=== PATIENT | female | born 1970 | race Caucasian/White ===

== ENCOUNTER → 2019-10-11 | Outpatient (CLI) | payer BC, OTHER ==
--- NOTE | 2019-10-11 12:54 | WOMENS IMAGING REPORT ---
EXAM DESCRIPTION: 3D SCREENING MAMMO BILAT IMAGES COMPLETED DATE/TIME: 10/11/2019 10:45 am REASON FOR STUDY: Z12.31 ENCNTR SCREEN MAMMOGRAM FOR MALIGNANT NEOPLASM OF BREAST Z12.31 ENCNTR SCR EEN MAMMOGRAM FOR MALIGNANT NEOPLASM OF CEASAR COMPARISON: 02/07/2014 and 02/23/2009. EXAM PARAMETERS: Views: Standard craniocaudal and mediolateral oblique views of each breast recorded using digital acquisition and breast tomosynthesis. Read with the assistance of CAD. .[facility] - R2 Physician Anesthesiologist Version 9.2 LIMITATIONS: None. FINDINGS: No suspicious masses, suspicious calcifications or architectural distortion. No areas of c oncern. IMPRESSION: NEGATIVE MAMMOGRAM. BIRADS 1. BREAST DENSITY: a. The breasts are almost entirely fatty. BIRAD: ASSESSMENT: 1 NEGATIVE RECOMMENDATION: ROUTINE SCREENING COMMENT: The patient has been notified of the results by letter per MQSA requirements. Additional no tification policies are in place for contacting patient with suspicious or incomplete findings. Quality ID #[id number]: The [employer] recommends an annual screening mammogram for women aged 40 years or over. This facility utilizes a reminder system to ensure that all patients receive reminder letters, and/or direct phone calls for appointments. This includes reminders for routine scr eening mammograms, diagnostic mammograms, or other Breast Imaging Interventions when appropriate. Th is patient will be placed in the appropriate reminder system. TECHNICAL DOCUMENTATION: FINDING NUMBER: (1) ASSESSMENT: (1) JOB ID: [id number] 2010 [employer]- All Rights Reserved Reading location - IP/workstation name: [email or web address]
== END ==
LOC: WI 10:10
PROVIDERS: ATTEND Physician Assistant
DX: Z12.31 Encounter for screening mammogram for malignant neoplasm of breast (principal)
CPT/HCPCS: 77063; 77067

== ENCOUNTER 2019-11-23 19:17 | Inpatient (IN) | payer BC ==
--- NOTE | 2019-11-23 19:50 | ER Document Report ---
ED Medical Screen (RME) - General Chief Complaint: Abnormal Lab Results Stated Complaint: ABNORMAL LABS Primary Care Provider: EDWIGE OLIVEIRA PA-C [Primary Care Provider] - Follow up as needed Notes: Patient is a 49-year-old white female who is status post appendectomy [facility] who reports today with fever. States that she saw her primary doctor after developing fevers over the past 24 hours. States that she still having discomfort in the right lower quadrant. Her doctor sent her for blood work and CAT scan. Her doctor called with results concerned for possible further infection status post appendectomy and had the patient come to the emergency department for further care management. Patient denies any nausea or vomiting or diarrhea. States that she has eaten a sandwich earlier today but nothing since. Reports decreased appetite but does state that she is currently hungry. Denies any chest pain or cough. Denies any urinary complaints. I have treated and performed a rapid initial assessment of this patient. A comprehensive ED assessment and evaluation of the patient, analysis of test results and completion of medical decision making process will be conducted by additional ED providers. PHYSICAL EXAMINATION: GENERAL: Well-appearing, well-nourished and in no acute distress. A&Ox4. Answers questions appropriately. TRAVEL OUTSIDE OF THE [place] IN LAST 30 DAYS: No - Related Data Allergies/Adverse Reactions: No Known Allergies Allergy (Unverified 11/23/19 19:42) Past Medical History Past Surgical History: Reports: Hx Section, Hx Cholecystectomy - Immunizations Hx Diphtheria, Pertussis, Tetanus Vaccination: Yes Physical Exam - Vital signs Vitals: Temp Pulse Resp BP Pulse Ox 99.1 F 111 H 20 140/65 H 99 11/23/19 19:37 11/23/19 19:37 11/23/19 19:37 11/23/19 19:37 11/23/19 19:37 Course - Vital Signs Vital signs: Temp Pulse Resp BP Pulse Ox 99.1 F 111 H 20 140/65 H 99 11/23/19 19:37 11/23/19 19:37 11/23/19 19:37 11/23/19 19:37 11/23/19 19:37 Doctor's Discharge - Discharge Referrals: EDWIGE OLIVEIRA PA-C [Primary Care Provider] - Follow up as needed
--- NOTE | 2019-11-23 21:44 | RADIOLOGY REPORT (SQ) ---
CLINICAL INDICATION: fevers/po appendectomy. TECHNIQUE: A single portable AP view was obtained of the chest at 2103 hours. COMPARISON: None. FINDINGS: The cardiomediastinal silhouette is normal. The lungs definite mild chronic interstitial change. No acute process. No evidence of effusion or pneumothorax. Osteoarthritis. Postsurgical change right upper quadrant. IMPRESSION: No evidence of active intrathoracic disease.
[2019-11-23 21:57] LABS: ABSOLUTE LYMPHOCYTES (AUTO) 0.9 10^3/uL (0.5-4.7); ABSOLUTE MONOCYTES (AUTO) 1.1 10^3/uL (0.1-1.4); BASOPHILS % (AUTO) 0.3 % (0-2); EOSINOPHILS % (AUTO) 0.1 % (0-6); HEMATOCRIT 38.8 % (36.0-47.0); HEMOGLOBIN 13.1 g/dL (12.0-15.5); LYMPHOCYTES % (AUTO) 5.1 % (13-45); MEAN CORPUSCULAR HEMOGLOBIN 29.6 pg (27.0-33.4); MEAN CORPUSCULAR HGB CONC 33.9 g/dL (32.0-36.0); MEAN CORPUSCULAR VOLUME 88 fl (80-97); MONOCYTES % (AUTO) 6.3 % (3-13); PLATELET COUNT 691 10^3/uL (150-450); RED BLOOD COUNT 4.43 10^6/uL (3.72-5.28); SEGMENTED NEUTROPHILS % (AUTO) 88.2 % (42-78); TOTAL CELLS COUNTED % (AUTO) 100 %
[2019-11-23 22:16] LABS: ALBUMIN 4.2 g/dL (3.5-5.0); ALKALINE PHOSPHATASE 193 U/L (38-126); ANION GAP 15 (5-19); ASPARTATE AMINO TRANSFERASE 138 U/L (14-36); BILIRUBIN,TOTAL 1.6 mg/dL (0.2-1.3); BLOOD UREA NITROGEN 12 mg/dL (7-20); CALCIUM 9.8 mg/dL (8.4-10.2); CARBON DIOXIDE 29 mmol/L (22-30); CHLORIDE 93 mmol/L (98-107); GLUCOSE 143 mg/dL (75-110); POTASSIUM 5.2 mmol/L (3.6-5.0); TOTAL PROTEIN 7.8 g/dL (6.3-8.2)
[2019-11-24] MEDS ORDERED: ACETAMINOPHEN 325 MG TABLET PO ONE (01:06)
[2019-11-24 01:18] LABS: APPEARANCE,URINE SLIGHTLY-CLOUDY; BILIRUBIN,URINE NEGATIVE (NEGATIVE); COLOR,URINE AMBER; GLUCOSE, URINE NEGATIVE (NEGATIVE); KETONES,URINE TRACE mg/dL (NEGATIVE); PROTEIN,URINE >=500 mg/dL (NEGATIVE); URINE SPECIFIC GRAVITY 1.041
[2019-11-24] MEDS ORDERED: PIPERACILLIN/TAZOBACTAM 3.375 GM VIAL IV ONE (01:19)
[2019-11-24] MEDS ORDERED: RINGERS SOLUTION,LACTATED 1,000 ML IV ONE (01:19)
[2019-11-24] MEDS ORDERED: VANCOMYCIN HCL INJ 1000 MG VIAL IV ONE (01:19)
[2019-11-24] MEDS ORDERED: ONDANSETRON HCL INJ/PF 4 MG/2 ML SDV IV ONE (01:19)
[2019-11-24] MEDS ORDERED: MORPHINE SULFATE 10 MG/ML INJ IV ONE (01:20)
--- NOTE | 2019-11-24 01:23 | ER Document Report ---
ED GI/ - General Chief Complaint: Abnormal Lab Results Stated Complaint: ABNORMAL LABS Time Seen by Provider: 11/24/19 01:04 Mode of Arrival: Ambulatory Information source: Patient Notes: 49-year-old female 10 days status post appendectomy in [facility] presents to the emergency room with fevers of 103 that started 2 days ago. She has been taking Tylenol without relief. Also complaining of persistent right lower quadrant pain. Complains of nausea but no vomiting. No urinary symptoms. Negative COVID testing prior to her appendectomy. States she followed up with her primary care physician today for the fever and the persistent pain had labs and CT done and was referred to the emergency room for further evaluation. TRAVEL OUTSIDE OF THE [place] IN LAST 30 DAYS: No - Related Data Allergies/Adverse Reactions: No Known Allergies Allergy (Unverified 11/23/19 19:42) Past Medical History - General Information source: Patient - Social History Smoking Status: Never Smoker Frequency of alcohol use: Occasional Drug Abuse: None Family History: Reviewed & Not Pertinent - Past Medical History Cardiac Medical History: Reports: Hx Hypertension Past Surgical History: Reports: Hx Section, Hx Cholecystectomy - Immunizations Hx Diphtheria, Pertussis, Tetanus Vaccination: Yes Review of Systems - Review of Systems Constitutional: Fever, Malaise EENT: No symptoms reported Cardiovascular: No symptoms reported Respiratory: No symptoms reported Gastrointestinal: Abdominal pain, Nausea. denies: Diarrhea, Vomiting Genitourinary: No symptoms reported Musculoskeletal: No symptoms reported Skin: No symptoms reported Neurological/Psychological: No symptoms reported -: Yes All other systems reviewed and negative Physical Exam - Vital signs Vitals: Temp Pulse Resp BP Pulse Ox 99.1 F 111 H 20 140/65 H 99 11/23/19 19:37 11/23/19 19:37 11/23/19 19:37 11/23/19 19:37 11/23/19 19:37 - General General appearance: Appears well, Alert In distress: Moderate - Respiratory Respiratory status: No respiratory distress Chest status: Nontender Breath sounds: Normal Chest palpation: Normal - Cardiovascular Rhythm: Tachycardia Heart sounds: Normal auscultation Murmur: No - Abdominal Inspection: Normal Distension: No distension Bowel sounds: Normal Tenderness: Tender - There is tenderness on palpation to the right lower quadrant. No guarding, no rebound. Organomegaly: No organomegaly Notes: Well-healing surgical scars with no erythema, not warm or tender to palpation. No active discharge or draining noted. - Back Back: Normal, Nontender. No: CVA tenderness - Neurological Neuro grossly intact: Yes Cognition: Normal Orientation: AAOx4 [place] Coma Scale Eye Opening: Spontaneous Nishant Coma Scale Verbal: Oriented Nishant Coma Scale Motor: Obeys Commands [place] Coma Scale Total: 15 Speech: Normal Motor strength normal: LUE, RUE, LLE, RLE Sensory: Normal - Skin Skin Temperature: Warm Skin Moisture: Dry Skin Color: Normal Course - Re-evaluation Re-evalutation: 11/24/19 01:30 Patient is febrile, tachycardic, elevated temp. Reviewed lab and CAT scan results with patient. No obvious abscess or fluid collection noted on CT. Case was staffed with ED physician Dr. Mcneil, patient with abnormal LFTs along with elevated white count, negative urine, negative lactic, will start IV fluids, IV Zosyn, IV Vanco, pain medications, nausea medications, anti- paramedics abdominal ultrasound and reevaluate. - Vital Signs Vital signs: Temp Pulse Resp BP Pulse Ox 99.8 F 113 H 18 133/76 H 96 11/24/19 02:34 11/24/19 00:14 11/24/19 00:14 11/24/19 00:14 11/24/19 00:14 - Laboratory Result Diagrams: 11/23/19 21:32 11/23/19 21:32 Laboratory results interpreted by me: 11/23/19 11/23/19 11/24/19 21:32 21:32 00:50 WBC 17.0 H Plt Count 691 H Lymph % (Auto) 5.1 L Absolute Neuts (auto) 15.0 H Seg Neutrophils % 88.2 H Potassium 5.2 H Chloride 93 L Glucose 143 H Total Bilirubin 1.6 H Direct Bilirubin 1.0 H AST 138 H ALT 161 H Alkaline Phosphatase 193 H Urine Protein >=500 H Urine Ketones TRACE H Urine Blood SMALL H Urine Urobilinogen 2.0 H - Diagnostic Test Radiology reviewed: Reports reviewed - Consults Dr. Santoyo Time consulted: 02:48 Reason for consultation: 11/24/19 02:48 Lab, x-ray, vital signs, treatments were discussed at length with hospitalist Dr. Santoyo, agrees evaluation, agrees with plan, accepts admission. Consulted provider: will come to ER Discharge - Discharge Clinical Impression: Nausea Sepsis Qualifiers: Sepsis type: sepsis due to unspecified organism Sepsis acute organ dysfunction status: without acute organ dysfunction Qualified Code(s): A41.9 - Sepsis, unspecified organism Fever Qualifiers: Fever type: unspecified Qualified Code(s): R50.9 - Fever, unspecified Abdominal pain Qualifiers: Abdominal location: right lower quadrant Qualified Code(s): R10.31 - Right lower quadrant pain Condition: Stable Disposition: ADMITTED OBSERVATION Admitting Provider: Natanael (Hospitalist) Unit Admitted: Medical Floor
--- NOTE | 2019-11-24 02:25 | RADIOLOGY REPORT (SQ) ---
COMPLETED DATE/TME: 11/24/2019 01:20 EXAM: Abdomen ultrasound. INDICATION: Abdominal pain. TECHNIQUE: Grayscale and Doppler sonogram of the abdomen. COMPARISON: CT dated 11/23/2019. FINDINGS: Pancreas: Not well seen Aorta: Visualized portion is unremarkable. IVC: Visualized portion is unremarkable. Liver: Parenchyma: Homogenous echotexture. Length: 13.6 cm. Main portal vein: Normal directional flow. Gallbladder: Cholecystectomy. Common bile duct: Diameter: 0.1 cm. Right kidney: Length: 10.2 x 5.3 x 4.4 cm. No hydronephrosis. Left kidney: Length: 12.5 x 6.2 x 5.6 cm. No hydronephrosis. Spleen: Measures 9.5 cm. IMPRESSION: 1. Unremarkable abdominal ultrasound.
[2019-11-24] MEDS ORDERED: ACETAMINOPHEN 325 MG TABLET PO PRN (04:19)
[2019-11-24] MEDS ORDERED: MAG HYDROX/AL HYDROX/SIMETH SUSP 30 ML UDCUP PO PRN (04:19)
[2019-11-24] MEDS ORDERED: RINGERS SOLUTION,LACTATED 1,000 ML IV PRN (04:19)
[2019-11-24] MEDS ORDERED: ONDANSETRON HCL INJ/PF 4 MG/2 ML SDV IV PRN (04:19)
[2019-11-24] MEDS ORDERED: DOPAMINE HCL/DEXTROSE 5%-WATER 800 MG/250 ML RTUINJ IV PRN (04:21)
[2019-11-24] MEDS ORDERED: VANCOMYCIN HCL 0 MG in DEXTROSE 5%-WATER 250 ML IV NR (04:30)
--- NOTE | 2019-11-24 04:57 | PDOC H&P ---
History of Present Illness Admission Date/PCP: 11/24/19 04:16 EDWIGE OLIVEIRA PA-C Patient complains of: fever, abdominal pain History of Present Illness: SE MCKENZIE is a 49 year old female, past medical history of hypertension, who was sent to the ED by her primary care physician due to fever and abdominal pain. Patient underwent appendectomy about 10 days prior in [facility]. Appendectomy was uncomplicated, nonruptured, no peritonitis. She was discharged 1 day postop and according to the patient she was given IV antibiotics while she was admitted in the hospital. She continued to have right lower quadrant pain a few days after the surgery which he attributes to postop pain. She started to experience fever 2 days prior ex of 103, with associated nausea and bloatedness. She reports that she is able to have a bowel movement and passing gas. She denies any chest pain shortness of breath, no urinary symptoms. CT scan done in the outpatient showed pericecal inflammatory changes status post appendectomy. There is no drainable fluid collection. The ED blood pressure noted 130/71, heart rate of 113. CBC showed WBC count of 17. CMP showed transaminitis. He was given Zosyn and Vanco, IV fluids per sepsis protocol. Past Medical History Cardiac Medical History: Reports: Hypertension Pulmonary Medical History: Reports: None EENT Medical History: Reports: None Neurological Medical History: Reports: None Endocrine Medical History: Reports: None Renal/ Medical History: Reports: None Malignancy Medical History: Reports: None GI Medical History: Reports: None Musculoskeltal Medical History: Reports: None Skin Medical History: Reports: None Psychiatric Medical History: Reports: None Traumatic Medical History: Reports: None Hematology: Reports: None Infectious Medical History: Reports: None Past Surgical History Past Surgical History: Reports: Appendectomy - 11/12/19, Section, Cholecystectomy Social History Information Source: Patient Smoking Status: Never Smoker Electronic Cigarette use?: No Hx Recreational Drug Use: No Hx Prescription Drug Abuse: No Family History Family History: Reviewed & Not Pertinent Parental Family History Reviewed: Yes Children Family History Reviewed: Yes Sibling(s) Family History Reviewed.: Yes Medication/Allergy Allergies/Adverse Reactions: No Known Allergies Allergy (Unverified 11/23/19 19:42) Review of Systems Constitutional: PRESENT: chills, fever(s). ABSENT: fatigue, weakness Eyes: ABSENT: visual disturbances Nose, Mouth, and Throat: ABSENT: headache(s) Cardiovascular: ABSENT: chest pain, dyspnea on exertion, orthropnea, palpitations Gastrointestinal: PRESENT: abdominal pain, bloating, nausea. ABSENT: constipation, diarrhea, vomiting Genitourinary: ABSENT: dysuria Musculoskeletal: ABSENT: joint swelling Neurological: ABSENT: focal weakness, numbness Endocrine: ABSENT: cold intolerance, heat intolerance Physical Exam Vital Signs: Temp Pulse Resp BP Pulse Ox 98.5 F 103 H 18 130/71 H 96 11/24/19 04:31 11/24/19 04:31 11/24/19 04:31 11/24/19 04:31 11/24/19 04:31 Intake & Output 11/22/19 11/23/19 11/24/19 06:59 06:59 06:59 Intake Total 1000 Balance 1000 Weight 96.2 kg General appearance: PRESENT: no acute distress, cooperative Head exam: PRESENT: atraumatic, normocephalic Eye exam: PRESENT: EOMI, PERRLA Mouth exam: PRESENT: moist Neck exam: PRESENT: full ROM Respiratory exam: PRESENT: clear to auscultation manny, symmetrical, unlabored. ABSENT: tachypnea, wheezes Cardiovascular exam: PRESENT: RRR, +S1, +S2 Pulses: PRESENT: +2 pedal pulses bilateral GI/Abdominal exam: PRESENT: distended, guarding, normal bowel sounds, soft, tenderness Extremities exam: PRESENT: full ROM Musculoskeletal exam: PRESENT: full ROM Neurological exam: PRESENT: alert, awake, oriented to person, oriented to place, oriented to time, oriented to situation Psychiatric exam: PRESENT: normal mood Results Laboratory Results: 11/23/19 21:32 11/23/19 21:32 11/23/19 11/23/19 11/23/19 21:32 21:32 22:23 WBC 17.0 H RBC 4.43 Hgb 13.1 Hct 38.8 MCV 88 MCH 29.6 MCHC 33.9 RDW 14.0 Plt Count 691 H Seg Neutrophils % 88.2 H Sodium 137.0 Potassium 5.2 H Chloride 93 L Carbon Dioxide 29 Anion Gap 15 BUN 12 Creatinine 0.63 Est GFR ( Amer) > 60 Glucose 143 H Lactic Acid 1.5 Calcium 9.8 Total Bilirubin 1.6 H AST 138 H Alkaline Phosphatase 193 H Total Protein 7.8 Albumin 4.2 Urine Color Urine Appearance Urine pH Ur Specific [place] Urine Protein Urine Glucose (UA) Urine Ketones Urine Blood Urine RBC (Auto) 11/24/19 00:50 WBC RBC Hgb Hct MCV MCH MCHC RDW Plt Count Seg Neutrophils % Sodium Potassium Chloride Carbon Dioxide Anion Gap BUN Creatinine Est GFR ( Amer) Glucose Lactic Acid Calcium Total Bilirubin AST Alkaline Phosphatase Total Protein Albumin Urine Color YUDI Urine Appearance SLIGHTLY-CLOUDY Urine pH 5.0 Ur Specific [place] 1.041 Urine Protein >=500 H Urine Glucose (UA) NEGATIVE Urine Ketones TRACE H Urine Blood SMALL H Urine RBC (Auto) 3 Impressions: Chest X-Ray 11/23/19 19:48 IMPRESSION: No evidence of active intrathoracic disease. Abdomen Ultrasound 11/24/19 01:20 IMPRESSION: 1. Unremarkable abdominal ultrasound. Assessment and Plan - Diagnosis (1) Sepsis Qualifiers: Sepsis type: sepsis due to unspecified organism Sepsis acute organ dysfunction status: without acute organ dysfunction Qualified Code(s): A41.9 - Sepsis, unspecified organism Is this a current diagnosis for this admission?: Yes Plan: -Status post appendectomy 10 days ago coming in with high-grade fever, abdominal pain, tachycardia, leukocytosis -Positive right lower quadrant tenderness, positive guarding, negative rebound -CT head showed pericecal inflammatory changes status post appendectomy. There is no drainable fluid collection -Source likely abdominal -WBC count 17 -Lactic normal -Urinalysis normal -Chest x-ray normal -Continue IV fluids -Given vancomycin and Zosyn in the ED. We will switch to ceftriaxone and vancomycin -Blood culture pending -No indication for surgery referral at this time (2) Abdominal pain Qualifiers: Abdominal location: right lower quadrant Qualified Code(s): R10.31 - Right lower quadrant pain Is this a current diagnosis for this admission?: Yes Plan: -Secondary to post appendectomy or beginning peritonitis. -Tylenol for pain (3) Hypertension Qualifiers: Hypertension type: essential hypertension Qualified Code(s): I10 - Essential (primary) hypertension Is this a current diagnosis for this admission?: Yes Plan: -Amlodipine resumed - Time Time Spent with patient: 25-34 minutes Anticipated Discharge Disposition: Home, Self Care Anticipated Discharge Timeframe: within 48 hours - Inpatient Certification Medical Necessity: Need for IV Antibiotics
[2019-11-24] MEDS ORDERED: CEFTRIAXONE 1 GM/D5W RTU 1 GM/50 ML RTUPB IV SCH (05:00)
[2019-11-24] MEDS: HEPARIN SOD (PORCINE) 5,000 UNIT/ML 1 ML VIAL SUBCUT SCH ×3 (05:47→21:38)
[2019-11-24] MEDS ORDERED: GLUCAGON,HUMAN RECOMB 1 MG INJ SUBCUT PRN (09:25)
[2019-11-24] MEDS ORDERED: DEXTROSE 50%-WATER 25 GM/50 ML DISP.SYRIN IV PRN ×2 (09:25)
[2019-11-24] MEDS ORDERED: DEXTROSE 40% GEL 15 GM TUBE PO PRN ×2 (09:25)
[2019-11-24] MEDS ORDERED: DOCUSATE SODIUM 100 MG/10 ML UDC PO SCH (10:00)
[2019-11-24] MEDS: AMLODIPINE BESYLATE 10 MG TABLET PO SCH (10:39)
[2019-11-24 10:51] LABS: ABSOLUTE LYMPHOCYTES (AUTO) 0.8 10^3/uL (0.5-4.7); ABSOLUTE MONOCYTES (AUTO) 1.3 10^3/uL (0.1-1.4); ABSOLUTE NEUT (AUTO) 12.1 10^3/uL (1.7-8.2); BASOPHILS % (AUTO) 0.2 % (0-2); EOSINOPHILS % (AUTO) 0.1 % (0-6); HEMATOCRIT 32.7 % (36.0-47.0); HEMOGLOBIN 11.2 g/dL (12.0-15.5); LYMPHOCYTES % (AUTO) 5.7 % (13-45); MEAN CORPUSCULAR HGB CONC 34.4 g/dL (32.0-36.0); MEAN CORPUSCULAR VOLUME 87 fl (80-97); MONOCYTES % (AUTO) 8.8 % (3-13); PLATELET COUNT 595 10^3/uL (150-450); RED BLOOD COUNT 3.75 10^6/uL (3.72-5.28); RED CELL DISTRIBUTION WIDTH 13.9 % (11.5-14.0); SEGMENTED NEUTROPHILS % (AUTO) 85.2 % (42-78); TOTAL CELLS COUNTED % (AUTO) 100 %; WHITE BLOOD COUNT 14.2 10^3/uL (4.0-10.5)
[2019-11-24 11:09] LABS: ALBUMIN 3.5 g/dL (3.5-5.0); ALKALINE PHOSPHATASE 159 U/L (38-126); ANION GAP 12 (5-19); ASPARTATE AMINO TRANSFERASE 99 U/L (14-36); BILIRUBIN,DIRECT 0.9 mg/dL (0.0-0.4); BILIRUBIN,TOTAL 1.2 mg/dL (0.2-1.3); BLOOD UREA NITROGEN 10 mg/dL (7-20); CALCIUM 9.1 mg/dL (8.4-10.2); CARBON DIOXIDE 29 mmol/L (22-30); CHLORIDE 93 mmol/L (98-107); GLUCOSE 137 mg/dL (75-110); POTASSIUM 5.1 mmol/L (3.6-5.0); TOTAL PROTEIN 6.6 g/dL (6.3-8.2)
[2019-11-24] MEDS ORDERED: PIPERACILLIN/TAZOBACTAM 3.375 GM VIAL IV STA (11:11)
--- NOTE | 2019-11-24 11:26 | PDOC CONSULTATION ---
Consultation Consult Date: 11/24/19 Provider Consulted: SHON PARRA Consult reason:: Status post laparoscopic appendectomy, fever and leukocytosis History of Present Illness Admission Date/PCP: 11/24/19 04:16 EDWIGE OLIVEIRA PA-C History of Present Illness: SE MCKENZIE is a 49 year old femal, healthy, with history of hypertension and ADD, who underwent a laparoscopic appendectomy for acute appendicitis while on vacation on November 12, 2019 at outside hospital. According to the patient th e surgery was uncomplicated, the appendicitis was not perforated, she was kept on IV antibiotics for 1 day and discharged home the following day November 12. She remained with friends the following day and she drove back home November 13 good since then, she is experienced progressive bloating, nausea, low-grade temperature, and right upper quadrant pain. She has consulted her primary care physician yesterday who recommended her to present to the emergency room. Her blood work demonstrated white count of 17,[address] scan abdomen pelvis revealed inflammatory changes of the cecum and ascending colon and the pericecal area as well. No drainable fluid collections are identified, no free air was seen. Past Medical History Cardiac Medical History: Reports: Hypertension Pulmonary Medical History: Reports: None EENT Medical History: Reports: None Neurological Medical History: Reports: None Endocrine Medical History: Reports: None Renal/ Medical History: Reports: None Malignancy Medical History: Reports: None GI Medical History: Reports: None Musculoskeltal Medical History: Reports: None Skin Medical History: Reports: None Psychiatric Medical History: Reports: None Denies: Depression Traumatic Medical History: Reports: None Hematology: Reports: None Infectious Medical History: Reports: None Past Surgical History Past Surgical History: Reports: Appendectomy - 11/12/19, Section, Cholecystectomy Social History Smoking Status: Never Smoker Electronic Cigarette use?: No Frequency of Alcohol Use: None Hx Recreational Drug Use: No Drugs: None Hx Prescription Drug Abuse: No Family History Family History: Reviewed & Not Pertinent Parental Family History Reviewed: No Children Family History Reviewed: No Sibling(s) Family History Reviewed.: No Medication/Allergy Home Medications: Amlodipine Besylate [Norvasc 10 mg Tablet] 10 mg PO DAILY 11/24/19 Dextroamphetamine/Amphetamine [Dextroamp-Amphet ER 15 mg Cap] 1 cap.sr PO DAILY PRN 11/24/19 Methocarbamol 500 mg PO TIDP PRN 11/24/19 Allergies/Adverse Reactions: No Known Allergies Allergy (Unverified 11/23/19 19:42) Physical Exam Vital Signs: Temp Pulse Resp BP Pulse Ox 101.3 F H 109 H 20 149/62 H 98 11/24/19 09:23 11/24/19 08:05 11/24/19 08:05 11/24/19 08:05 11/24/19 08:05 Intake & Output 11/23/19 11/24/19 11/25/19 06:59 06:59 06:59 Intake Total 1050 Balance 1050 Weight 96.2 kg General appearance: PRESENT: mild distress, obese Head exam: PRESENT: atraumatic, normocephalic Eye exam: PRESENT: EOMI Mouth exam: PRESENT: moist Neck exam: PRESENT: full ROM Respiratory exam: PRESENT: clear to auscultation manny Cardiovascular exam: PRESENT: RRR GI/Abdominal exam: PRESENT: diminished bowel sounds, hypoactive bowel sounds, mass - Right lower quadrant, soft, tenderness - In the right lower quadrant with underlying indurated mass Rectal exam: PRESENT: deferred Extremities exam: PRESENT: full ROM Musculoskeletal exam: PRESENT: full ROM Neurological exam: PRESENT: alert, awake, CN II-XII grossly intact Psychiatric exam: PRESENT: appropriate affect Skin exam: PRESENT: warm Results Laboratory Results: 11/24/19 10:23 11/24/19 10:23 11/23/19 11/23/19 11/23/19 21:32 21:32 22:23 WBC 17.0 H RBC 4.43 Hgb 13.1 Hct 38.8 MCV 88 MCH 29.6 MCHC 33.9 RDW 14.0 Plt Count 691 H Seg Neutrophils % 88.2 H Sodium 137.0 Potassium 5.2 H Chloride 93 L Carbon Dioxide 29 Anion Gap 15 BUN 12 Creatinine 0.63 Est GFR ( Amer) > 60 Glucose 143 H Lactic Acid 1.5 Calcium 9.8 Total Bilirubin 1.6 H AST 138 H Alkaline Phosphatase 193 H Total Protein 7.8 Albumin 4.2 Urine Color Urine Appearance Urine pH Ur Specific [place] Urine Protein Urine Glucose (UA) Urine Ketones Urine Blood Urine RBC (Auto) 11/24/19 11/24/19 11/24/19 00:50 10: 10:23 WBC 14.2 H RBC 3.75 Hgb 11.2 L Hct 32.7 L MCV 87 MCH 30.0 MCHC 34.4 RDW 13.9 Plt Count 595 H Seg Neutrophils % 85.2 H Sodium 134.4 L Potassium 5.1 H Chloride 93 L Carbon Dioxide 29 Anion Gap 12 BUN 10 Creatinine 0.69 Est GFR ( Amer) > 60 Glucose 137 H Lactic Acid Calcium 9.1 Total Bilirubin 1.2 AST 99 H Alkaline Phosphatase 159 H Total Protein 6.6 Albumin 3.5 Urine Color YUDI Urine Appearance SLIGHTLY-CLOUDY Urine pH 5.0 Ur Specific [place] 1.041 Urine Protein >=500 H Urine Glucose (UA) NEGATIVE Urine Ketones TRACE H Urine Blood SMALL H Urine RBC (Auto) 3 11/24/19 10:23 WBC RBC Hgb Hct MCV MCH MCHC RDW Plt Count Seg Neutrophils % Sodium Potassium Chloride Carbon Dioxide Anion Gap BUN Creatinine Est GFR ( Amer) Glucose Lactic Acid 1.5 Calcium Total Bilirubin AST Alkaline Phosphatase Total Protein Albumin Urine Color Urine Appearance Urine pH Ur Specific [place] Urine Protein Urine Glucose (UA) Urine Ketones Urine Blood Urine RBC (Auto) Impressions: Chest X-Ray 11/23/19 19:48 IMPRESSION: No evidence of active intrathoracic disease. Abdomen Ultrasound 11/24/19 01:20 IMPRESSION: 1. Unremarkable abdominal ultrasound. Assessment & Plan - Diagnosis (1) Status post laparoscopic appendectomy Is this a current diagnosis for this admission?: Yes (2) Cecal and ascending colon inflammation Is this a current diagnosis for this admission?: Yes (3) Abdominal pain Qualifiers: Abdominal location: right lower quadrant Qualified Code(s): R10.31 - Right lower quadrant pain Is this a current diagnosis for this admission?: Yes - Plan Summary Plan Summary: Assessment: Status post laparoscopic appendectomy for uncomplicated, not perforated appendicitis at an outside hospital, on November 11 Persistent right lower quadrant pain a low-grade temperature following discharge for the past 10 days Evaluation in this hospital ED reveals leukocytosis 17,000 decreased to 14,[address] scan abdomen / pelvis with inflammatory changes of the cecum and ascending colon without free air, free fluid, or drainable area or contrast going through the right colon without problems Physical exam is significant for distended abdomen with palpable right colon cecal induration Plan: No surgery plans for this patient at this point I am recommending conservative management unless the patient clinically worsens Continue strict n.p.o. I's and O's strict Change IV antibiotics to Zosyn 3.375 g IV piggyback every 6 Ofirmev IV piggyback for pain Daily blood work Change IV fluids to normal saline 150 mL/h Abdominal obstructive series tomorrow
[2019-11-24] MEDS: FAMOTIDINE INJ/PF 20 MG/2 ML SDV IV SCH ×2 (13:19→21:37)
[2019-11-24] MEDS: NORMAL SALINE 1000 ML 1,000 ML IV PRN (13:32)
[2019-11-24] MEDS: PIPERACILLIN SODIUM/TAZOBACTAM 3.375 GM in NORMAL SALINE 100 ML IV SCH ×3 (13:32→23:39)
[2019-11-24] MEDS: ACETAMINOPHEN 1,000 MG/100 ML RTUPB IV PRN ×2 (14:31→21:40)
[2019-11-24] MEDS: VANCOMYCIN HCL 1,000 MG in DEXTROSE 5%-WATER 250 ML IV SCH ×2 (14:35→21:39)
--- NOTE | 2019-11-24 14:59 | PDOC PROGRESS REPORT ---
Subjective Progress Note for:: 11/24/19 Subjective:: Patient is a 49-year-old female with a past medical history of hypertension and ADD who was admitted 11/24/2019 with SIRS following laparoscopic appendectomy 10 days ago at outside facility. Patient was seen on morning rounds. She is found resting in bed, comfortably, on room air. She reports persistent right lower quadrant abdominal pain. T-max this morning 103.1; improved w/ tylenol but remains febrile. Patient reports mild nausea and anorexia but otherwise denies all symptoms. No sick contacts or known COVID exposure. Denies chest pain, palpitations, dyspnea, orthopnea, emesis, diarrhea and constipation. She has no questions or concerns at this time. No concerns per nursing. Reason For Visit: SEPSIS Physical Exam Vital Signs: Temp Pulse Resp BP Pulse Ox 101.3 F H 99 18 127/69 H 97 11/24/19 11:46 11/24/19 11:13 11/24/19 11:13 11/24/19 11:13 11/24/19 11:13 Intake & Output 11/23/19 11/24/19 11/25/19 06:59 06:59 06:59 Intake Total 1050 Balance 1050 Weight 96.2 kg General appearance: PRESENT: no acute distress, cooperative, obese, well- developed, well-nourished Head exam: PRESENT: atraumatic, normocephalic Eye exam: PRESENT: conjunctiva pink, EOMI, PERRLA. ABSENT: scleral icterus Mouth exam: PRESENT: moist, tongue midline Respiratory exam: PRESENT: clear to auscultation manny, symmetrical, unlabored. ABSENT: rales, rhonchi, wheezes Cardiovascular exam: PRESENT: RRR. ABSENT: diastolic murmur, rubs, systolic murmur Pulses: PRESENT: normal dorsalis pedis pul Vascular exam: PRESENT: normal capillary refill GI/Abdominal exam: PRESENT: distended - bloated, hypoactive bowel sounds, soft, tenderness - RLQ Rectal exam: PRESENT: deferred Extremities exam: PRESENT: full ROM. ABSENT: calf tenderness, clubbing, pedal edema Musculoskeletal exam: PRESENT: ambulatory Neurological exam: PRESENT: alert, awake, oriented to person, oriented to place, oriented to time, oriented to situation, CN II-XII grossly intact. ABSENT: motor sensory deficit Psychiatric exam: PRESENT: appropriate affect, normal mood. ABSENT: homicidal ideation, suicidal ideation Skin exam: PRESENT: dry, intact, warm. ABSENT: cyanosis, rash Results Laboratory Results: 11/24/19 10:23 11/24/19 10:23 11/23/19 11/23/19 11/23/19 21:32 21:32 22:23 WBC 17.0 H RBC 4.43 Hgb 13.1 Hct 38.8 MCV 88 MCH 29.6 MCHC 33.9 RDW 14.0 Plt Count 691 H Seg Neutrophils % 88.2 H Sodium 137.0 Potassium 5.2 H Chloride 93 L Carbon Dioxide 29 Anion Gap 15 BUN 12 Creatinine 0.63 Est GFR ( Amer) > 60 Glucose 143 H Lactic Acid 1.5 Calcium 9.8 Total Bilirubin 1.6 H AST 138 H Alkaline Phosphatase 193 H Total Protein 7.8 Albumin 4.2 Urine Color Urine Appearance Urine pH Ur Specific [place] Urine Protein Urine Glucose (UA) Urine Ketones Urine Blood Urine RBC (Auto) 11/24/19 11/24/19 11/24/19 00:50 10:23 10:23 WBC 14.2 H RBC 3.75 Hgb 11.2 L Hct 32.7 L MCV 87 MCH 30.0 MCHC 34.4 RDW 13.9 Plt Count 595 H Seg Neutrophils % 85.2 H Sodium 134.4 L Potassium 5.1 H Chloride 93 L Carbon Dioxide 29 Anion Gap 12 BUN 10 Creatinine 0.69 Est GFR ( Amer) > 60 Glucose 137 H Lactic Acid Calcium 9.1 Total Bilirubin 1.2 AST 99 H Alkaline Phosphatase 159 H Total Protein 6.6 Albumin 3.5 Urine Color YUDI Urine Appearance SLIGHTLY-CLOUDY Urine pH 5.0 Ur Specific [place] 1.041 Urine Protein >=500 H Urine Glucose (UA) NEGATIVE Urine Ketones TRACE H Urine Blood SMALL H Urine RBC (Auto) 3 11/24/19 10:23 WBC RBC Hgb Hct MCV MCH MCHC RDW Plt Count Seg Neutrophils % Sodium Potassium Chloride Carbon Dioxide Anion Gap BUN Creatinine Est GFR ( Amer) Glucose Lactic Acid 1.5 Calcium Total Bilirubin AST Alkaline Phosphatase Total Protein Albumin Urine Color Urine Appearance Urine pH Ur Specific [place] Urine Protein Urine Glucose (UA) Urine Ketones Urine Blood Urine RBC (Auto) Impressions: Chest X-Ray 11/23/19 19:48 IMPRESSION: No evidence of active intrathoracic disease. Abdomen Ultrasound 11/24/19 01:20 IMPRESSION: 1. Unremarkable abdominal ultrasound. Assessment and Plan - Diagnosis (1) SIRS (systemic inflammatory response syndrome) Is this a current diagnosis for this admission?: Yes Plan: Unclear source at this time. CXR, UA, and skin evaluation all unremarkable. CT ABD/Pelvis pericecal inflammatory changes status post appendectomy 10 days ago -Source likely abdominal Blood cultures pending. Urine cultures pending. Patient is admitted to medical floor on continuous cardiac telemetry. Surgery was consulted; greatly appreciate Dr. Carmona's evaluation recommendations. We will continue IV vancomycin and return to Zosyn per his recommendations. Continue generous IV fluids. (2) Leukocytosis Is this a current diagnosis for this admission?: Yes Plan: Secondary to #1. WBCs trending down 17-> 14 Cultures and antibiotics as above. (3) Abdominal pain Qualifiers: Abdominal location: right lower quadrant Qualified Code(s): R10.31 - Right lower quadrant pain Is this a current diagnosis for this admission?: Yes Plan: -Secondary to post appendectomy or beginning peritonitis. Surgery is consulted. N.p.o. IV Tylenol as needed pain. Motrin as needed fever. (4) Fever Qualifiers: Fever type: unspecified Qualified Code(s): R50.9 - Fever, unspecified Is this a current diagnosis for this admission?: Yes Plan: Secondary #1. Cultures and antibiotics as above. Tylenol, Motrin as needed. Incentive spirometer. (5) Hypertension Qualifiers: Hypertension type: essential hypertension Qualified Code(s): I10 - Essential (primary) hypertension Is this a current diagnosis for this admission?: Yes Plan: -Amlodipine resumed (6) Status post laparoscopic appendectomy Is this a current diagnosis for this admission?: Yes Plan: Laparoscopic appendectomy at outside facility 10 days ago. Surgery is consulted. - Time Time Spent with patient: 35 or more minutes Medications reviewed and adjusted accordingly: Yes Anticipated Discharge Disposition: Home, Self Care Anticipated Discharge Timeframe: undetermined
[2019-11-24] MEDS: IBUPROFEN 600 MG TABLET PO PRN (20:07)
[2019-11-25] MEDS: NORMAL SALINE 1000 ML 1,000 ML IV PRN ×2 (04:27→14:15)
[2019-11-25] MEDS: PIPERACILLIN SODIUM/TAZOBACTAM 3.375 GM in NORMAL SALINE 100 ML IV SCH ×3 (05:31→16:59)
[2019-11-25] MEDS: VANCOMYCIN HCL 1,000 MG in DEXTROSE 5%-WATER 250 ML IV SCH ×3 (05:32→23:40)
[2019-11-25] MEDS: HEPARIN SOD (PORCINE) 5,000 UNIT/ML 1 ML VIAL SUBCUT SCH ×3 (05:32→22:38)
[2019-11-25 05:43] LABS: ABSOLUTE MONOCYTES (AUTO) 1.2 10^3/uL (0.1-1.4); ABSOLUTE NEUT (AUTO) 9.5 10^3/uL (1.7-8.2); BASOPHILS % (AUTO) 0.4 % (0-2); EOSINOPHILS % (AUTO) 0.3 % (0-6); HEMATOCRIT 31.5 % (36.0-47.0); HEMOGLOBIN 10.7 g/dL (12.0-15.5); LYMPHOCYTES % (AUTO) 8.2 % (13-45); MEAN CORPUSCULAR HEMOGLOBIN 29.6 pg (27.0-33.4); MEAN CORPUSCULAR HGB CONC 33.9 g/dL (32.0-36.0); MEAN CORPUSCULAR VOLUME 87 fl (80-97); MONOCYTES % (AUTO) 9.9 % (3-13); PLATELET COUNT 518 10^3/uL (150-450); RED BLOOD COUNT 3.62 10^6/uL (3.72-5.28); RED CELL DISTRIBUTION WIDTH 14.2 % (11.5-14.0); SEGMENTED NEUTROPHILS % (AUTO) 81.2 % (42-78); TOTAL CELLS COUNTED % (AUTO) 100 %; WHITE BLOOD COUNT 11.7 10^3/uL (4.0-10.5)
[2019-11-25 06:18] LABS: ALKALINE PHOSPHATASE 127 U/L (38-126); ANION GAP 9 (5-19); ASPARTATE AMINO TRANSFERASE 43 U/L (14-36); BILIRUBIN,DIRECT 0.5 mg/dL (0.0-0.4); BILIRUBIN,TOTAL 0.8 mg/dL (0.2-1.3); BLOOD UREA NITROGEN 10 mg/dL (7-20); CALCIUM 9.1 mg/dL (8.4-10.2); CARBON DIOXIDE 29 mmol/L (22-30); CHLORIDE 101 mmol/L (98-107); GLUCOSE 106 mg/dL (75-110); TOTAL PROTEIN 5.8 g/dL (6.3-8.2)
[2019-11-25 06:35] LABS: POTASSIUM 3.8 mmol/L (3.6-5.0)
[2019-11-25] MEDS: AMLODIPINE BESYLATE 10 MG TABLET PO SCH (09:13)
[2019-11-25] MEDS: FAMOTIDINE INJ/PF 20 MG/2 ML SDV IV SCH ×2 (10:25→22:38)
--- NOTE | 2019-11-25 11:29 | RADIOLOGY REPORT (SQ) ---
EXAM DESCRIPTION: ACUTE ABDOMEN SERIES IMAGES COMPLETED DATE/TIME: 11/25/2019 10:36 am REASON FOR STUDY: Follow-up CT scan findings COMPARISON: CT abdomen pelvis 11/23/2019 NUMBER OF VIEWS: Three views. TECHNIQUE: Frontal chest, supine abdomen and upright abdomen radiographic images acquired. LIMITATIONS: None. FINDINGS: CHEST: No acute infiltrates. No pleural effusion. No pneumothorax. Cardiac silhouette s ize, raven unremarkable. No subdiaphragmatic free air. FREE AIR: None. No abnormal gas collections. BOWEL GAS PATTERN: Oral contrast given for CT exam 11/23/2019 is seen in the descending colon and rect osigmoid. Few air-fluid levels are present in nondistended small bowel and colon loops on upright view. CALCIFICATIONS: No suspicious calcifications. HARDWARE: There are right lower quadrant surgical perry unchanged from 11/23/2019 SOFT TISSUES: No gross mass or suggestion of organomegaly. BONES: No acute fracture. No worrisome bone lesions. OTHER: No other significant finding. IMPRESSION: Oral contrast given for CT exam 11/23/2019 is now identified in the descending colon and rectosigmoid in a nonobstructive pattern TECHNICAL DOCUMENTATION: JOB ID: [id number] 2010 [employer]- All Rights Reserved Reading location - IP/workstation name: [email or web address]
[2019-11-25] MEDS: IBUPROFEN 600 MG TABLET PO PRN ×2 (13:26→22:42)
--- NOTE | 2019-11-25 14:43 | PDOC PROGRESS REPORT ---
Subjective Progress Note for:: 11/25/19 Subjective:: 49-year-old female 2 weeks status post acute appendicitis at another facility. The patient underwent appendectomy, and was discharged home. She then began having increased right lower quadrant pain, fevers, and chills. She was admitted to this hospital for ascending colitis. Today she reports that her abdominal pain is improving. She did have a loose bowel movement last night. She continues to pass flatus. She denies any nausea, vomiting, chest pain, shortness of breath, fevers, chills, dizziness, orthostasis. Reason For Visit: SEPSIS Physical Exam Vital Signs: Temp Pulse Resp BP Pulse Ox 98.0 F 92 18 126/72 H 97 11/25/19 10:58 11/25/19 10:58 11/25/19 10:58 11/25/19 10:58 11/25/19 10:58 Intake & Output 11/24/19 11/25/19 11/26/19 06:59 06:59 06:59 Intake Total 1050 1950 1203 Output Total 700 Balance 1050 1250 1203 Weight 96.2 kg 100.3 kg General appearance: PRESENT: no acute distress, cooperative. ABSENT: disheveled Head exam: PRESENT: atraumatic, normocephalic Eye exam: PRESENT: EOMI, PERRLA. ABSENT: scleral icterus Mouth exam: PRESENT: moist, neck supple Neck exam: ABSENT: meningismus, tenderness, thyromegaly, tracheal deviation Respiratory exam: PRESENT: unlabored. ABSENT: tachypnea, wheezes Cardiovascular exam: ABSENT: tachycardia Pulses: PRESENT: normal radial pulses GI/Abdominal exam: PRESENT: soft, tenderness - Right lower quadrant. ABSENT: distended Rectal exam: PRESENT: deferred Extremities exam: ABSENT: clubbing Musculoskeletal exam: ABSENT: deformity Neurological exam: PRESENT: alert, awake, oriented to person, oriented to place, oriented to time, oriented to situation, CN II-XII grossly intact Psychiatric exam: ABSENT: agitated, anxious, depressed Focused psych exam: ABSENT: delusional Skin exam: ABSENT: cyanosis, erythema, jaundice Results Laboratory Results: 11/25/19 05:20 11/25/19 05:20 11/25/19 11/25/19 05:20 05:20 WBC 11.7 H RBC 3.62 L Hgb 10.7 L Hct 31.5 L MCV 87 MCH 29.6 MCHC 33.9 RDW 14.2 H Plt Count 518 H Seg Neutrophils % 81.2 H Sodium 139.0 Potassium 3.8 D Chloride 101 Carbon Dioxide 29 Anion Gap 9 BUN 10 Creatinine 0.58 Est GFR ( Amer) > 60 Glucose 106 Calcium 9.1 Total Bilirubin 0.8 AST 43 H Alkaline Phosphatase 127 H Total Protein 5.8 L Albumin 3.0 L Impressions: Chest X-Ray 11/23/19 19:48 IMPRESSION: No evidence of active intrathoracic disease. Abdomen Ultrasound 11/24/19 01:20 IMPRESSION: 1. Unremarkable abdominal ultrasound. Acute Abdomen Series 11/25/19 06:00 IMPRESSION: Oral contrast given for CT exam 11/23/2019 is now identified in the descending colon and rectosigmoid in a nonobstructive pattern Assessment & Plan - Diagnosis (1) Cecal and ascending colon inflammation Is this a current diagnosis for this admission?: Yes - Time Anticipated Discharge Disposition: Home, Self Care Anticipated Discharge Timeframe: unknown - Plan Summary Plan Summary: 49-year-old female with colitis involving the ascending colon. The patient recently underwent appendectomy. This inflammatory process could be similar in nature to that inciting event. The patient appears to be improving with antibiotics. She is afebrile and her heart rate is normal. She reports that her pain is improving. I would continue with conservative management for now. Maintain adequate hydration, continue IV antibiotics, and monitor closely. I would keep the patient n.p.o. for today. Hopefully, she will improve again overnight. If her improvement continues, plan to advance to liquids tomorrow. I have strongly recommended the patient have a colonoscopy in 6 to 8 weeks to ensure that this does not represent an occult malignancy. The patient denies diarrhea up to this point, however if she develops diarrhea, would consider stool studies. Surgery will continue to follow very closely with you.
--- NOTE | 2019-11-25 18:14 | PDOC PROGRESS REPORT ---
Subjective Progress Note for:: 11/25/19 Subjective:: Patient is a 49-year-old female with a past medical history of hypertension and ADD who was admitted 11/24/2019 with SIRS following laparoscopic appendectomy 10 days ago at outside facility. Patient was seen on morning rounds. She is found resting in bed, comfortably, on room air. She reports right lower quadrant abdominal pain; however, much improved as compared to yesterday. Passing gas. No nausea or vomiting. T-max 103.0/24 hrs. Afebrile since 8pm last night (almost 24 hrs) Continues to have anorexia but otherwise feels well. Denies chest pain, palpitations, dyspnea, orthopnea, emesis, diarrhea and constipation. She has no questions or concerns at this time. No concerns per nursing. Reason For Visit: SEPSIS Physical Exam Vital Signs: Temp Pulse Resp BP Pulse Ox 98.2 F 79 18 116/63 96 11/25/19 16:04 11/25/19 16:04 11/25/19 16:04 11/25/19 16:04 11/25/19 16:04 Intake & Output 11/24/19 11/25/19 11/26/19 06:59 06:59 06:59 Intake Total 1050 1950 1453 Output Total 700 Balance 1050 1250 1453 Weight 96.2 kg 100.3 kg General appearance: PRESENT: no acute distress, cooperative, well-developed, well-nourished - overweight Head exam: PRESENT: atraumatic, normocephalic Eye exam: PRESENT: conjunctiva pink, EOMI, PERRLA. ABSENT: scleral icterus Mouth exam: PRESENT: moist, tongue midline Respiratory exam: PRESENT: clear to auscultation manny, symmetrical, unlabored. ABSENT: rales, rhonchi, wheezes Cardiovascular exam: PRESENT: RRR. ABSENT: diastolic murmur, rubs, systolic murmur Vascular exam: PRESENT: normal capillary refill GI/Abdominal exam: PRESENT: distended - bloated; decreased, hyperactive bowel sounds, soft, tenderness - RLQ. ABSENT: guarding, mass, organolmegaly, rebound Extremities exam: PRESENT: full ROM. ABSENT: calf tenderness, clubbing, pedal edema Musculoskeletal exam: PRESENT: ambulatory Neurological exam: PRESENT: alert, awake, oriented to person, oriented to place, oriented to time, oriented to situation, CN II-XII grossly intact. ABSENT: motor sensory deficit Psychiatric exam: PRESENT: appropriate affect, normal mood. ABSENT: homicidal ideation, suicidal ideation Skin exam: PRESENT: dry, intact, warm. ABSENT: cyanosis, rash Results Laboratory Results: 11/25/19 05:20 11/25/19 05:20 11/25/19 11/25/19 05:20 05:20 WBC 11.7 H RBC 3.62 L Hgb 10.7 L Hct 31.5 L MCV 87 MCH 29.6 MCHC 33.9 RDW 14.2 H Plt Count 518 H Seg Neutrophils % 81.2 H Sodium 139.0 Potassium 3.8 D Chloride 101 Carbon Dioxide 29 Anion Gap 9 BUN 10 Creatinine 0.58 Est GFR ( Amer) > 60 Glucose 106 Calcium 9.1 Total Bilirubin 0.8 AST 43 H Alkaline Phosphatase 127 H Total Protein 5.8 L Albumin 3.0 L Impressions: Chest X-Ray 11/23/19 19:48 IMPRESSION: No evidence of active intrathoracic disease. Abdomen Ultrasound 11/24/19 01:20 IMPRESSION: 1. Unremarkable abdominal ultrasound. Acute Abdomen Series 11/25/19 06:00 IMPRESSION: Oral contrast given for CT exam 11/23/2019 is now identified in the descending colon and rectosigmoid in a nonobstructive pattern Assessment and Plan - Diagnosis (1) Cecal and ascending colon inflammation Is this a current diagnosis for this admission?: Yes Plan: CT ABD/Pelvis pericecal inflammatory changes status post appendectomy 10 days ago -Source likely abdominal Blood cultures negative at 24 hrs Urine cultures NGTD Patient is admitted to medical floor on continuous cardiac telemetry. Surgery iss consulted; greatly appreciate their evaluation and recommendations. Remain NPO We will continue IV vancomycin and Zosyn; Day #2. Will plan on discontinuing Vanc if patient demonstrates continued clinical improvement and negative cultures. Surgery has started on IV Metronidazole Continue generous IV fluids. (2) Abdominal pain Qualifiers: Abdominal location: right lower quadrant Qualified Code(s): R10.31 - Right lower quadrant pain Is this a current diagnosis for this admission?: Yes Plan: -Secondary to post appendectomy or beginning peritonitis. Surgery is consulted. N.p.o. IV Tylenol as needed pain. Motrin as needed fever. (3) Hypertension Qualifiers: Hypertension type: essential hypertension Qualified Code(s): I10 - Essential (primary) hypertension Is this a current diagnosis for this admission?: Yes Plan: -Amlodipine resumed (4) Status post laparoscopic appendectomy Is this a current diagnosis for this admission?: Yes Plan: Laparoscopic appendectomy at outside facility 10 days ago. Surgery is consulted. (5) Sepsis Qualifiers: Sepsis type: sepsis due to unspecified organism Sepsis acute organ dysfunction status: without acute organ dysfunction Qualified Code(s): A41.9 - Sepsis, unspecified organism Is this a current diagnosis for this admission?: Yes Plan: Improved; leukocytosis trending down, afebrile x24 hours (although temp of 103 last evening) with stable vital signs and improved clinical appearance. Sepsis, present on arrival, evidenced by Fever, tachycardia, tachypnea, leukocytosis, and elevated bilirubin. Cultures and antibiotics as above. (6) Fever Qualifiers: Fever type: unspecified Qualified Code(s): R50.9 - Fever, unspecified Is this a current diagnosis for this admission?: Yes Plan: Secondary #1. Cultures and antibiotics as above. Tylenol, Motrin as needed. Incentive spirometer. (7) Leukocytosis Is this a current diagnosis for this admission?: Yes Plan: Secondary to #1. WBCs trending down 17-> 14-> 11 Cultures and antibiotics as above. (8) SIRS (systemic inflammatory response syndrome) Is this a current diagnosis for this admission?: Yes Plan: As above. - Time Time Spent with patient: 25-34 minutes Medications reviewed and adjusted accordingly: Yes Anticipated Discharge Disposition: Home, Self Care Anticipated Discharge Timeframe: >72 hrs
[2019-11-25 21:50] LABS: VANCOMYCIN,TROUGH 10.7 ug/mL (5.0-20.0)
[2019-11-25] MEDS: METRONIDAZOLE 500 MG/NS RTU 500 MG/100 ML RTUPB IV SCH (22:38)
[2019-11-26] MEDS: PIPERACILLIN SODIUM/TAZOBACTAM 3.375 GM in NORMAL SALINE 100 ML IV SCH ×2 (01:16→06:21)
[2019-11-26] MEDS: METRONIDAZOLE 500 MG/NS RTU 500 MG/100 ML RTUPB IV SCH (05:31)
[2019-11-26] MEDS: HEPARIN SOD (PORCINE) 5,000 UNIT/ML 1 ML VIAL SUBCUT SCH ×3 (05:34→21:01)
[2019-11-26 07:11] LABS: ABSOLUTE BASOPHILS # (AUTO) 0.1 10^3/uL (0.0-0.2); ABSOLUTE EOSINOPHILS # (AUTO) 0.2 10^3/uL (0.0-0.6); ABSOLUTE LYMPHOCYTES (AUTO) 1.1 10^3/uL (0.5-4.7); ABSOLUTE MONOCYTES (AUTO) 0.7 10^3/uL (0.1-1.4); ABSOLUTE NEUT (AUTO) 3.3 10^3/uL (1.7-8.2); BASOPHILS % (AUTO) 1.1 % (0-2); EOSINOPHILS % (AUTO) 3.8 % (0-6); HEMATOCRIT 30.3 % (36.0-47.0); HEMOGLOBIN 10.4 g/dL (12.0-15.5); LYMPHOCYTES % (AUTO) 20.6 % (13-45); MEAN CORPUSCULAR HGB CONC 34.4 g/dL (32.0-36.0); MEAN CORPUSCULAR VOLUME 87 fl (80-97); MONOCYTES % (AUTO) 12.8 % (3-13); PLATELET COUNT 563 10^3/uL (150-450); RED BLOOD COUNT 3.47 10^6/uL (3.72-5.28); RED CELL DISTRIBUTION WIDTH 14.1 % (11.5-14.0); SEGMENTED NEUTROPHILS % (AUTO) 61.7 % (42-78); TOTAL CELLS COUNTED % (AUTO) 100 %; WHITE BLOOD COUNT 5.3 10^3/uL (4.0-10.5)
[2019-11-26 07:31] LABS: ALBUMIN 2.9 g/dL (3.5-5.0); ALKALINE PHOSPHATASE 107 U/L (38-126); ANION GAP 12 (5-19); ASPARTATE AMINO TRANSFERASE 28 U/L (14-36); BILIRUBIN,DIRECT 0.4 mg/dL (0.0-0.4); BILIRUBIN,TOTAL 0.5 mg/dL (0.2-1.3); BLOOD UREA NITROGEN 11 mg/dL (7-20); CALCIUM 8.6 mg/dL (8.4-10.2); CARBON DIOXIDE 24 mmol/L (22-30); CHLORIDE 104 mmol/L (98-107); GLUCOSE 82 mg/dL (75-110); POTASSIUM 3.7 mmol/L (3.6-5.0); TOTAL PROTEIN 5.7 g/dL (6.3-8.2)
[2019-11-26] MEDS: VANCOMYCIN HCL 1,000 MG in DEXTROSE 5%-WATER 250 ML IV SCH (07:47)
--- NOTE | 2019-11-26 09:09 | PDOC PROGRESS REPORT ---
Subjective Progress Note for:: 11/26/19 Reason For Visit: SEPSIS Feels better, would like to try diet; only one small loose stool, no more diarrhea Physical Exam Vital Signs: Temp Pulse Resp BP Pulse Ox 97.8 F 79 18 123/63 95 11/26/19 07:51 11/26/19 07:51 11/26/19 07:51 11/26/19 07:51 11/26/19 07:51 Intake & Output 11/25/19 11/26/19 11/27/19 06:59 06:59 06:59 Intake Total 1950 1553 250 Output Total 700 900 Balance 1250 653 250 Weight 100.3 kg 100.3 kg General appearance: PRESENT: no acute distress GI/Abdominal exam: PRESENT: other - Abdomen benign no tenderness no peritoneal signs no rigidity Results Laboratory Results: 11/26/19 06:36 11/26/19 06:36 11/26/19 11/26/19 06:36 06:36 WBC 5.3 RBC 3.47 L Hgb 10.4 L Hct 30.3 L MCV 87 MCH 30.0 MCHC 34.4 RDW 14.1 H Plt Count 563 H Seg Neutrophils % 61.7 Sodium 139.9 Potassium 3.7 Chloride 104 Carbon Dioxide 24 Anion Gap 12 BUN 11 Creatinine 0.52 Est GFR ( Amer) > 60 Glucose 82 Calcium 8.6 Total Bilirubin 0.5 AST 28 Alkaline Phosphatase 107 Total Protein 5.7 L Albumin 2.9 L Impressions: Chest X-Ray 11/23/19 19:48 IMPRESSION: No evidence of active intrathoracic disease. Abdomen Ultrasound 11/24/19 01:20 IMPRESSION: 1. Unremarkable abdominal ultrasound. Acute Abdomen Series 11/25/19 06:00 IMPRESSION: Oral contrast given for CT exam 11/23/2019 is now identified in the descending colon and rectosigmoid in a nonobstructive pattern Assessment & Plan - Diagnosis (1) Abdominal pain Qualifiers: Abdominal location: right lower quadrant Qualified Code(s): R10.31 - Right lower quadrant pain Is this a current diagnosis for this admission?: Yes Plan: Impression: Acute right colonic inflammatory process resolved; etiology remains somewhat elusive Recommendations: 1. Start diet and advance accordingly 2. Consider consolidating antibiotics 3. No indication for surgical intervention; will sign off; please reconsult if clinically indicated; discussed above with Crystal Fairfield, hospitalist (2) Fever Qualifiers: Fever type: unspecified Qualified Code(s): R50.9 - Fever, unspecified - Time Time Spent: 30 to 50 Minutes Critical Time spent with patient: Less than 15 minutes Medications reviewed and adjusted accordingly: Yes Anticipated Discharge Disposition: Home, Self Care Anticipated Discharge Timeframe: within 48 hours
[2019-11-26] MEDS: FAMOTIDINE INJ/PF 20 MG/2 ML SDV IV SCH ×2 (09:56→21:03)
[2019-11-26] MEDS: AMLODIPINE BESYLATE 10 MG TABLET PO SCH (10:01)
--- NOTE | 2019-11-26 11:17 | PDOC PROGRESS REPORT ---
Subjective Progress Note for:: 11/26/19 Subjective:: Patient is a 49-year-old female with a past medical history of hypertension and ADD who was admitted 11/24/2019 with SIRS following laparoscopic appendectomy 10 days ago at outside facility. Patient was seen on morning rounds. She is found sitting up to the recliner, comfortably, on room air. She reports RLQ pain is much improved. Tolerating clear liquid diet. Very unhappy with her IV; multiple have infiltrated, requesting to change to oral antibiotics with IV do not have to be restarted. T-max 103.0/48 hrs. Afebrile x24 hrs. Denies chest pain, palpitations, dyspnea, orthopnea, nausea, emesis, diarrhea and constipation. She has no questions or concerns at this time. No concerns per nursing. Reason For Visit: SEPSIS Physical Exam Vital Signs: Temp Pulse Resp BP Pulse Ox 97.8 F 79 18 123/63 95 11/26/19 10:00 11/26/19 07:51 11/26/19 07:51 11/26/19 07:51 11/26/19 07:51 Intake & Output 11/25/19 11/26/19 11/27/19 06:59 06:59 06:59 Intake Total 1950 1553 1000 Output Total 700 900 400 Balance 1250 653 600 Weight 100.3 kg 100.3 kg General appearance: PRESENT: no acute distress, cooperative, well-developed, well-nourished - Overweight Head exam: PRESENT: atraumatic, normocephalic Eye exam: PRESENT: conjunctiva pink, EOMI, PERRLA. ABSENT: scleral icterus Mouth exam: PRESENT: moist, tongue midline Respiratory exam: PRESENT: clear to auscultation manny, symmetrical, unlabored, other - Room air. ABSENT: rales, rhonchi, wheezes Cardiovascular exam: PRESENT: RRR. ABSENT: diastolic murmur, rubs, systolic murmur Vascular exam: PRESENT: normal capillary refill GI/Abdominal exam: PRESENT: distended - Bloated; decreased, normal bowel sounds, soft. ABSENT: guarding, mass, organolmegaly, rebound, tenderness Rectal exam: PRESENT: deferred Extremities exam: PRESENT: full ROM. ABSENT: calf tenderness, clubbing, pedal edema Musculoskeletal exam: PRESENT: ambulatory Neurological exam: PRESENT: alert, awake, oriented to person, oriented to place, oriented to time, oriented to situation, CN II-XII grossly intact. ABSENT: motor sensory deficit Psychiatric exam: PRESENT: appropriate affect, normal mood. ABSENT: homicidal ideation, suicidal ideation Skin exam: PRESENT: dry, intact, warm. ABSENT: cyanosis, rash Results Laboratory Results: 11/26/19 06:36 11/26/19 06:36 11/26/19 11/26/19 06:36 06:36 WBC 5.3 RBC 3.47 L Hgb 10.4 L Hct 30.3 L MCV 87 MCH 30.0 MCHC 34.4 RDW 14.1 H Plt Count 563 H Seg Neutrophils % 61.7 Sodium 139.9 Potassium 3.7 Chloride 104 Carbon Dioxide 24 Anion Gap 12 BUN 11 Creatinine 0.52 Est GFR ( Amer) > 60 Glucose 82 Calcium 8.6 Total Bilirubin 0.5 AST 28 Alkaline Phosphatase 107 Total Protein 5.7 L Albumin 2.9 L 11/24/19 00:50 Clean Catch Midstream Urine Culture - Final Mixed Urogenital [place] Impressions: Chest X-Ray 11/23/19 19:48 IMPRESSION: No evidence of active intrathoracic disease. Abdomen Ultrasound 11/24/19 01:20 IMPRESSION: 1. Unremarkable abdominal ultrasound. Acute Abdomen Series 11/25/19 06:00 IMPRESSION: Oral contrast given for CT exam 11/23/2019 is now identified in the descending colon and rectosigmoid in a nonobstructive pattern Assessment and Plan - Diagnosis (1) Cecal and ascending colon inflammation Is this a current diagnosis for this admission?: Yes Plan: Significantly improved. CT ABD/Pelvis pericecal inflammatory changes status post appendectomy 10 days ago -Source likely abdominal Blood cultures negative at 48 hrs Urine cultures NGTD Patient is admitted to medical floor on continuous cardiac telemetry. Surgery is consulted; greatly appreciate their evaluation and recommendations. Tolerated clear liquid diet; will advance gradually. IV vancomycin discontinued; received 3 days of therapy. Zosyn is discontinued; received 3 days of therapy. Start p.o. Augmentin. Transition to p.o. metronidazole; day #2. (2) Abdominal pain Qualifiers: Abdominal location: right lower quadrant Qualified Code(s): R10.31 - Right lower quadrant pain Is this a current diagnosis for this admission?: Yes Plan: Resolved. (3) Hypertension Qualifiers: Hypertension type: essential hypertension Qualified Code(s): I10 - Essential (primary) hypertension Is this a current diagnosis for this admission?: Yes Plan: -Amlodipine resumed (4) Status post laparoscopic appendectomy Is this a current diagnosis for this admission?: Yes Plan: Laparoscopic appendectomy at outside facility 10 days ago. Surgery is consulted. (5) Sepsis Qualifiers: Sepsis type: sepsis due to unspecified organism Sepsis acute organ dysfunction status: without acute organ dysfunction Qualified Code(s): A41.9 - Sepsis, unspecified organism Is this a current diagnosis for this admission?: Yes Plan: Resolved; leukocytosis resolved, afebrile x24 hours with stable vital signs and improved clinical appearance. Sepsis, present on arrival, evidenced by Fever, tachycardia, tachypnea, leukocytosis, and elevated bilirubin. Cultures and antibiotics as above. (6) Fever Qualifiers: Fever type: unspecified Qualified Code(s): R50.9 - Fever, unspecified Is this a current diagnosis for this admission?: Yes Plan: Secondary #1. Cultures and antibiotics as above. Tylenol, Motrin as needed. Incentive spirometer. (7) Leukocytosis Is this a current diagnosis for this admission?: Yes Plan: Resolved. Secondary to #1. WBCs trending down 17-> 14-> 11-> 5.3 Cultures and antibiotics as above. (8) SIRS (systemic inflammatory response syndrome) Is this a current diagnosis for this admission?: Yes Plan: As above. - Time Time Spent with patient: 25-34 minutes Medications reviewed and adjusted accordingly: Yes Anticipated Discharge Disposition: Home, Self Care Anticipated Discharge Timeframe: within 24 hours
[2019-11-26] MEDS: AMOXICILLIN TR/POT CLAVULANATE 500-125 MG TAB PO SCH ×2 (13:54→21:10)
[2019-11-26] MEDS: METRONIDAZOLE 500 MG TABLET PO SCH ×2 (13:54→21:10)
[2019-11-26] MEDS: IBUPROFEN 600 MG TABLET PO PRN (16:10)
[2019-11-27] MEDS: HEPARIN SOD (PORCINE) 5,000 UNIT/ML 1 ML VIAL SUBCUT SCH (05:19)
[2019-11-27] MEDS: METRONIDAZOLE 500 MG TABLET PO SCH (05:21)
[2019-11-27] MEDS: AMOXICILLIN TR/POT CLAVULANATE 500-125 MG TAB PO SCH (05:21)
[2019-11-27 06:59] LABS: HEMATOCRIT 30.8 % (36.0-47.0); HEMOGLOBIN 10.8 g/dL (12.0-15.5); MEAN CORPUSCULAR HEMOGLOBIN 30.2 pg (27.0-33.4); MEAN CORPUSCULAR VOLUME 86 fl (80-97); PLATELET COUNT 657 10^3/uL (150-450); RED BLOOD COUNT 3.58 10^6/uL (3.72-5.28); RED CELL DISTRIBUTION WIDTH 14.3 % (11.5-14.0)
[2019-11-27 07:44] VITALS: BP 125/74
[2019-11-27] MEDS: FAMOTIDINE INJ/PF 20 MG/2 ML SDV IV SCH (09:03)
[2019-11-27] MEDS: AMLODIPINE BESYLATE 10 MG TABLET PO SCH (09:09)
== END 2019-11-27 10:05 | disposition home or self-care (01) | DRG 872 ==
LOC: ER 19:17 → EH 11-24 02:59 → OBSVTOIN 11-24 04:16 → 4S 11-24 05:00
PROVIDERS: ADMIT Internal Medicine; ATTEND Registered Nurse
DX: A41.9 Sepsis, unspecified organism (principal); I10 Essential (primary) hypertension; F98.8 Other specified behavioral and emotional disorders with onset usually occurring in childhood and adolescence; R10.31 Right lower quadrant pain; K37 Unspecified appendicitis; K52.9 Noninfective gastroenteritis and colitis, unspecified; Z03.818 Encounter for observation for suspected exposure to other biological agents ruled out; Z98.890 Other specified postprocedural states
CPT/HCPCS: 36415; 71045; 74022; 76700; 80053; 80202; 81001; 82962; 83605; 85025; 85027; 87040; 87045; 87070; 87077; 87086; 87205; 87635; 93976; 94799; 96365; 96366; 96368; 96375; 99285; C9803; J0131; J0696; J1644; J2270; J2405; J2543; J3370; J3490; J7030; J7050; J7060; J7120; S0028

== ENCOUNTER → 2019-11-23 | Outpatient (CLI) | payer BC ==
[2019-11-23 11:53] LABS: ABSOLUTE BASOPHILS # (AUTO) 0.1 10^3/uL (0.0-0.2); ABSOLUTE LYMPHOCYTES (AUTO) 1.1 10^3/uL (0.5-4.7); ABSOLUTE MONOCYTES (AUTO) 1.3 10^3/uL (0.1-1.4); ABSOLUTE NEUT (AUTO) 13.9 10^3/uL (1.7-8.2); BASOPHILS % (AUTO) 0.3 % (0-2); EOSINOPHILS % (AUTO) 0.2 % (0-6); HEMATOCRIT 36.5 % (36.0-47.0); HEMOGLOBIN 12.5 g/dL (12.0-15.5); LYMPHOCYTES % (AUTO) 6.8 % (13-45); MEAN CORPUSCULAR HEMOGLOBIN 29.7 pg (27.0-33.4); MEAN CORPUSCULAR HGB CONC 34.3 g/dL (32.0-36.0); MEAN CORPUSCULAR VOLUME 87 fl (80-97); MONOCYTES % (AUTO) 7.7 % (3-13); PLATELET COUNT 650 10^3/uL (150-450); RED BLOOD COUNT 4.22 10^6/uL (3.72-5.28); RED CELL DISTRIBUTION WIDTH 13.8 % (11.5-14.0); TOTAL CELLS COUNTED % (AUTO) 100 %; WHITE BLOOD COUNT 16.4 10^3/uL (4.0-10.5)
[2019-11-23 12:17] LABS: ALBUMIN 4.1 g/dL (3.5-5.0); ALKALINE PHOSPHATASE 159 U/L (38-126); ANION GAP 14 (5-19); ASPARTATE AMINO TRANSFERASE 103 U/L (14-36); BILIRUBIN,DIRECT 0.7 mg/dL (0.0-0.4); BILIRUBIN,TOTAL 1.2 mg/dL (0.2-1.3); BLOOD UREA NITROGEN 12 mg/dL (7-20); CALCIUM 9.6 mg/dL (8.4-10.2); CARBON DIOXIDE 29 mmol/L (22-30); CHLORIDE 95 mmol/L (98-107); GLUCOSE 143 mg/dL (75-110); POTASSIUM 4.9 mmol/L (3.6-5.0); TOTAL PROTEIN 7.5 g/dL (6.3-8.2)
--- NOTE | 2019-11-23 14:40 | RADIOLOGY REPORT (SQ) ---
EXAM DESCRIPTION: CT ABD/PELVIS WITH IV ORAL IMAGES COMPLETED DATE/TIME: 11/23/2019 2:25 pm REASON FOR STUDY: R10.813 RIGHT LOWER QUADRANT ABDOMINAL TENDERNESS, T81.9XXA UNSPECIFIED COM R10.31 RIGHT LOWER QUADRANT PAIN T81.9XXA UNSPECIFIED COMPLICATION OF PROCEDURE, INITIAL ENCO R10.813 RI GHT LOWER QUADRANT ABDOMINAL TENDERNESS COMPARISON: None. TECHNIQUE: CT scan of the abdomen and pelvis performed using helical scanning technique with dynamic intravenous contrast injection. Oral contrast. Images reviewed with lung, soft tissue, and bone win dows. Reconstructed coronal and sagittal MPR images reviewed. Delayed images for evaluation of the ur inary system also acquired. All images stored on PACS. All CT scanners at this facility use dose modulation, iterative reconstruction, and/or weight based d osing when appropriate to reduce radiation dose to as low as reasonably achievable (ALARA). [facility]: Dose Right [facility]: CareDose [facility]: Dose Right [facility]: Teradose 4D [facility]: Vimessa CONTRAST TYPE AND DOSE: contrast/concentration: Isovue 350.00 mmol/ml; Total Contrast Delivered: 100 .0 ml; Total Saline Delivered: 40.0 ml RENAL FUNCTION: BUN 12 creatinine 0.68 RADIATION DOSE: CT Rad equipment meets quality standard of care and radiation dose reduction techniq ues were employed. CTDIvol: 16.1 - 19.5 mGy. DLP: 1922 mGy-cm.. LIMITATIONS: None. FINDINGS: LOWER CHEST: No significant findings. No nodules or infiltrates. LIVER: Normal size. No masses. No dilated ducts. SPLEEN: Normal size. No focal lesions. PANCREAS: No masses. No significant calcifications. No adjacent inflammation or peripancreatic fluid collections. Pancreatic duct not dilated. GALLBLADDER: Surgically absent. ADRENAL GLANDS: No significant masses or asymmetry. RIGHT KIDNEY AND URETER: No solid masses. No significant calcifications. No hydronephrosis or hyd roureter. LEFT KIDNEY AND URETER: No solid masses. No significant calcifications. No hydronephrosis or hydr oureter. AORTA AND VESSELS: No aneurysm. No dissection. Renal arteries, SMA, celiac without stenosis. RETROPERITONEUM: No retroperitoneal adenopathy, hemorrhage or masses. BOWEL AND PERITONEAL CAVITY: There are pericecal inflammatory changes. No drainable fluid collection is seen in the right lower quadrant. No obvious bowel mass. APPENDIX: Surgically absent. PELVIS: No mass. No free fluid. Normal bladder. ABDOMINAL WALL: No masses. No hernias. BONES: No significant or acute findings. OTHER: No other significant finding. IMPRESSION: There are pericecal inflammatory changes status post appendectomy. There is no drainabl e fluid collection. TECHNICAL DOCUMENTATION: JOB ID: [id number] Quality ID # [id number]: Final reports with documentation of one or more dose reduction techniques (e.g., Au tomated exposure control, adjustment of the mA and/or kV according to patient size, use of iterative reconstruction technique) 2010 [employer]- All Rights Reserved Reading location - IP/workstation name: [email or web address]
== END ==
LOC: RAD 11:15
PROVIDERS: ATTEND Physician Assistant
DX: R10.813 Right lower quadrant abdominal tenderness (principal)
CPT/HCPCS: 36415; 74177; 80053; 85025